=== PATIENT | male | born 1945 | race Caucasian/White ===

== ENCOUNTER → 2018-12-11 | Outpatient (CLI) | payer MEDICARE, OTHER ==
[~2018-12-11] MED LIST: AMLO1TAB15 PO; ASPI-630 PO; ATEN50TA PO; CHLO25TA10 PO; CRESTOR20 MG PO; GARL100T2 PO; METF500T9 PO; MULT-690 PO; NIAC500T PO; OMEG1CAP2 PO; OXYC1TAB22 PO
--- NOTE | 2018-12-11 14:37 | EKG ---
[facility] [address] [place] [id number] Test Date: 2018-12-11 Test Time: 14:34:26 Pat Name: BARBER ALDRIDGE Department: Room: Gender: Rink Rat: [facility] : 1945 Requested By: EDWIGE GOOD Order Number: [id number] Reading MD: Jose G Wolf Measurements Intervals [place] Rate: 58 P: 62 MI: 208 QRS: -38 QRSD: 86 T: 20 QT: 448 QTc: 444 Interpretive Statements SINUS RHYTHM ABNORMAL LEFT AXIS DEVIATION Electronically Signed On 12-12-2018 14:18:42 CDT by Jose G Wolf
[2018-12-11 15:46] LABS: BASO # 0.1 x10^3/uL (0.0-0.2); BASO % 1 % (0-3); EOS # 0.3 x10^3/uL (0.0-0.7); EOS % 2 % (0-3); HEMATOCRIT 46.5 % (39.0-53.0); HEMOGLOBIN 15.6 g/dL (13.0-17.5); LYMPH # 1.6 x10^3/uL (1.0-4.8); LYMPH % 12 % (24-48); MEAN CORPUSCULAR HEMOGLOBIN 32 pg (25-35); MEAN CORPUSCULAR HGB CONC 34 g/dL (31-37); MEAN CORPUSCULAR VOLUME 94 fL (79-100); MONO # 1.4 x10^3/uL (0.0-1.1); MONO % 10 % (0-9); NEUT # 9.9 x10^3uL (1.8-7.7); NEUT % 75 % (31-73); PLATELET COUNT 297 x10^3/uL (140-400); RED BLOOD COUNT 4.96 x10^6/uL (4.30-5.70); RED CELL DISTRIBUTION WIDTH 13.9 % (11.5-14.5); WHITE BLOOD COUNT 13.2 x10^3/uL (4.0-11.0)
[2018-12-11 16:04] LABS: ALBUMIN 3.6 g/dL (3.4-5.0); ALBUMIN/GLOBULIN RATIO 0.9 (1.0-1.7); CALCIUM 9.9 mg/dL (8.5-10.1); GFR 73.2; POTASSIUM 3.2 mmol/L (3.5-5.1); TOTAL BILIRUBIN 0.5 mg/dL (0.2-1.0); TOTAL PROTEIN 7.8 g/dL (6.4-8.2)
[2018-12-12 07:24] LABS: HEMOGLOBIN A1C 6.2 % (4.8-5.6)
== END | disposition home or self-care (01) ==
LOC: SURGPAT 13:40
PROVIDERS: ATTEND Neurological Surgery
DX: Z01.818 Encounter for other preprocedural examination (principal); M51.16 Intervertebral disc disorders with radiculopathy, lumbar region; R94.31 Abnormal electrocardiogram [ECG] [EKG]; Z88.0 Allergy status to penicillin; Z88.2 Allergy status to sulfonamides
CPT/HCPCS: 36415; 80053; 83036; 85025; 87641; 93005